=== PATIENT | female | born 1980 ===

== ENCOUNTER 2018-08-17 04:47 | Emergency (ER) | payer OTHER ==
[~2018-08-17] VITALS: Ht 170.2 cm; Wt 77.1 kg
[2018-08-17] MEDS ORDERED: ALDOMET250 MG (05:00)
[2018-08-17] MEDS ORDERED: KEPPRA750 MG (05:00)
[2018-08-17] MEDS ORDERED: ZITHROMAX500 MG PO (07:36)
[2018-08-17] MEDS ORDERED: ZYRTEC10 M2 PO (07:36)
== END 2018-08-17 07:45 | disposition home or self-care (01) ==
LOC: ER 04:47
DX: H66.91 Otitis media, unspecified, right ear (principal); R50.9 Fever, unspecified